=== PATIENT | male | born 1985 | race Caucasian/White ===

== ENCOUNTER 2019-05-07 12:07 | Emergency (ER) | payer SELFPAY ==
--- NOTE | 2019-05-07 13:00 | EDM.PDOC ---
ED HPI GENERAL MEDICAL PROBLEM - General Chief Complaint: Lower Extremity Injury/Pain Stated Complaint: INJURED LT FOOT Time Seen by Provider: 05/07/19 12:36 Source of Information: Reports: Patient History Limitations: Reports: No Limitations - History of Present Illness INITIAL COMMENTS - FREE TEXT/NARRATIVE: HISTORY AND PHYSICAL: History of present illness: Patient is a 33-year-old male who presents to the ED today with concern of a possible gout flare in his left big toe. Patient states he has had gout before in his left big toe and his symptoms today feel similar as to when he last had gout. Patient states the symptoms have been ongoing for the past several days. Patient states he was taking his friend's medication of indomethacin and was starting to have relief of symptoms but ran out of medication and over the past day or 2 his symptoms have returned. Patient is also requesting a refill of his blood pressure medications as he just ran out. Patient denies any other symptoms or concerns. Patient denies fever, chills, chest pain, shortness of breath, or cough. Denies headache, neck stiff ness, change in vision, syncope, or near syncope. Denies nausea, vomiting, abdominal pain, diarrhea, constipation, or dysuria. Has not noted any blood in urine or stool. Patient has been eating and drinking appropriately. Review of systems: As per history of present illness and below otherwise all systems reviewed and negative. Past medical history: As per history of present illness and as reviewed below otherwise noncontributory. Surgical history: As per history of present illness and as reviewed below otherwise noncontributory. Social history: See social history for further information Family history: As per history of present illness and as reviewed below otherwise noncontributory. Physical exam: General: Patient is alert, oriented, and in no acute distress. Patient sitting comfortably on exam table. HEENT: Atraumatic, normocephalic, pupils equal and reactive bilaterally, negative for conjunctival pallor or scleral icterus, mucous membranes moist, TMs normal bilaterally, throat clear, neck supple, nontender, trachea midline. No drooling or trismus noted. No meningeal signs. No hot potato voice noted. Lungs: Clear to auscultation, breath sounds equal bilaterally, chest nontender. Heart: S1S2, regular rate and rhythm without overt murmur Abdomen: Soft, nondistended, nontender. Negative for masses or hepatosplenomegaly. Negative for costovertebral tenderness. Pelvis: Stable nontender. Genitourinary: Deferred. Rectal: Deferred. Skin: Intact, warm, dry. No lesions or rashes noted. Extremities: Negative for cords or calf pain. Neurovascular unremarkable. Left big toe is mildly erythematous and slightly warm to the touch. Patient does have moderate pain with range of motion of the left big toe. Dorsalis pedis and posterior tibial pulses are grossly intact of the left lower extremity with capillary refill less than 2 seconds. Neuro: Awake, alert, oriented. Cranial nerves II through XII unremarkable. Cerebellum unremarkable. Motor and sensory unremarkable throughout. Exam nonfocal. Notes: I did refill patient's blood pressure medication enough for 2 weeks until he can follow up with his primary care provider. Voices understanding and is agreeable to plan of care. Denies any further questions or concerns at this time. Diagnostics: I did offer lab work and x-ray of foot but patient declines at this time. Therapeutics: None Prescription: Indomethacin, Metoprolol, Lisinopril/HCTZ Impression: Gout Flair, left big toe h/o hypertension Plan: 1. Take medication as prescribed. You can also use Tylenol as directed for pain and discomfort. 2. Follow up with your primary care provider as discussed. Return to the ED as needed and as discussed. Definitive disposition and diagnosis as appropriate pending reevaluation and review of above. Left Toe-Hailux Pain Score (Numeric/FACES): 8 - Related Data Allergies Allergy/AdvReac Type Severity Reaction Status Date / Time No Known Allergies Allergy Verified 05/07/19 12:41 Home Meds: Home Meds Lisinopril/Hydrochlorothiazide [Lisinopril-HCTZ 10-12.5 MG] 12.5 mg PO DAILY [History] Metoprolol Succinate 50 mg PO DAILY 05/07/19 [History] Past Medical History HEENT History: Reports: Sinusitis Cardiovascular History: Reports: Hypertension, Other (See Below) Other Cardiovascular History: tachycardia Musculoskeletal History: Reports: Gout - Infectious Disease History Infectious Disease History: Reports: Chicken Pox Social & Family History - Family History Family Medical History: Noncontributory - Tobacco Use Smoking Status *Q: Never Smoker Second Hand Smoke Exposure: No - Recreational Drug Use Recreational Drug Use: No Review of Systems - Review of Systems Review Of Systems: Comprehensive ROS is negative, except as noted in HPI. ED EXAM, GENERAL - Physical Exam Exam: See Below (See dictation) Course - Vital Signs Last Recorded V/S: Last Vital Signs Temp 98.3 F 05/07/19 12:35 Pulse 91 05/07/19 12:35 Resp 20 05/07/19 12:35 BP 145/105 H 05/07/19 12:35 Pulse Ox 99 05/07/19 12:35 Departure - Departure Time of Disposition: 12:59 Disposition: Home, Self-Care 01 Clinical Impression: Gout attack Qualifiers: Gout site: toe Gout etiology: unspecified cause Laterality: left Qualified Code (s): M10.9 - Gout, unspecified Hypertension Qualifiers: Hypertension type: unspecified Qualified Code(s): I10 - Essential (primary) hypertension - Discharge Information Instructions: Gout, [id number] Referrals: PCP,None [Primary Care Provider] - Forms: ED Department Discharge Additional Instructions: The following information is given to patients seen in the emergency department who are being discharged to home. This information is to outline your options for follow-up care. We provide all patients seen in our emergency department with a follow-up referral. The need for follow-up, as well as the timing and circumstances, are variable depending upon the specifics of your emergency department visit. If you don't have a primary care physician on staff, we will provide you with a referral. We always advise you to contact your personal physician following an emergency department visit to inform them of the circumstance of the visit and for follow-up with them and/or the need for any referrals to a consulting specialist. The emergency department will also refer you to a specialist when appropriate. This referral assures that you have the opportunity for follow-up care with a specialist. All of these measure are taken in an effort to provide you with optimal care, which includes your follow-up. Under all circumstances we always encourage you to contact your private physician who remains a resource for coordinating your care. When calling for follow-up care, please make the office aware that this follow-up is from your recent emergency room visit. If for any reason you are refused follow-up, please contact the [facility] Emergency Department at and asked to speak to the emergency department charge nurse. [facility] [address] [place] [address] [id number] 1. Take medication as prescribed. You can also use Tylenol as directed for pain and discomfort. 2. Follow with your primary care provider as discussed. Return to the ED as needed and as discussed.
== END 2019-05-07 13:23 | disposition home or self-care (01) ==
LOC: MW.ED 12:07
DX: M10.9 Gout, unspecified (principal); I10 Essential (primary) hypertension; Z79.899 Other long term (current) drug therapy
CPT/HCPCS: 99282; 99283